=== PATIENT | female | born 2000 | race Caucasian/White ===

== ENCOUNTER 2020-08-23 15:01 | Emergency (ER) | payer OTHER ==
[~2020-08-23] VITALS: Ht 162.6 cm; Wt 56.8 kg
[2020-08-23 15:17] VITALS: TEMP 98.9
[2020-08-23 16:15] VITALS: BP 121/76; PULSE 90
== END 2020-08-23 16:30 | disposition home or self-care (01) ==
LOC: COL.ER 15:01
DX: S83.91XA Sprain of unspecified site of right knee, initial encounter (principal); Y30.XXXA Falling, jumping or pushed from a high place, undetermined intent, initial encounter; Y93.39 Activity, other involving climbing, rappelling and jumping off